=== PATIENT | female | born 1970 | race Caucasian/White ===

== ENCOUNTER 2019-10-26 01:34 | Outpatient (CLI) | payer OTHER, SELFPAY ==
[2019-10-26 18:01] LABS: SARS-CoV-2 RNA PCR Negative
== END 2019-10-26 01:35 | disposition home or self-care (01) ==
LOC: ANHCOVIDDT 01:35
PROVIDERS: PCP Physician Assistant Medical; Visit Provider Surgery Plastic and Reconstructive Surgery
DX: Z01.812 Encounter for preprocedural laboratory examination (principal); Z20.828 Contact with and (suspected) exposure to other viral communicable diseases
CPT/HCPCS: 87635; C9803; U0003

== ENCOUNTER 2019-10-26 07:46 | Outpatient (CLI) | payer OTHER, SELFPAY ==
[2019-10-26 08:57] LABS: Albumin Level 4.2 g/dL (3.5-5.1)
[2019-10-26 09:07] LABS: Prealbumin 25.1 mg/dL (17.6-36.0)
[2019-10-26 09:24] LABS: Iron 109 ug/dL (37-170)
[2019-10-31 09:28] LABS: Vitamin B1 10 nmol/L (8-30)
== END 2019-10-26 07:47 | disposition home or self-care (01) ==
PROVIDERS: PCP Physician Assistant Medical; Visit Provider Surgery Plastic and Reconstructive Surgery
DX: L57.4 Cutis laxa senilis (principal)
CPT/HCPCS: 36415; 82040; 83540; 84134; 84425

== ENCOUNTER 2019-10-29 02:42 | Day surgery (SDC) | payer OTHER, SELFPAY ==
[2019-10-14 09:49] VITALS: BMI 25.1
[2019-10-29] VITALS (17 sets, daily range): BP systolic 85–110; BP diastolic 48–74; PULSE 69–111; RESP 10–20; TEMP 36.1–37.4; O2SAT 89–100; BMI 28.0
--- NOTE | 2019-10-29 07:08 | WPDHPUPDATE1 ---
History and Physical Update Update Date/Time: 10/29/19 07:08 History and Physical has been reviewed, including an updated exam of the patient. There are NO changes in the patient's condition. Risks, benefits, and alternatives have been discussed and questions answered. Patient agrees to proceed with procedure.
[2019-10-29] MEDS: LACTATED RINGERS 1,000 ML 30 ML IV CONT ×3 (07:34→12:14)
--- NOTE | 2019-10-29 07:38 | SUR.PREOP ---
0710; DR BERNAL IN ROOM MARKING PT. RN AT BEDSIDE.
--- NOTE | 2019-10-29 07:48 | WPDANESEPPF ---
Anes - Initial Pre Proc Eval Procedure: Operation Date: 10/29/19 08:30 Proposed Procedures p Abdominoplasty, - Jose Farr MD s Abdominal Liposuction - Jose Farr MD Date/Time: 10/29/19 07:48 Surgeon: Jose Farr MD Pre Op Diagnosis: Skin Laxity Patient Data Age: 49 Gender: F Height: 5 ft 9 in Weight: 86.2 kg Last Vital Signs Temp 36.8 C 10/29/19 06:30 Pulse 69 10/29/19 06:30 Resp 16 10/29/19 06:30 BP 110/72 10/29/19 06:30 Pulse Ox 100 10/29/19 06:30 Allergies Allergy/AdvReac Type Severity Reaction Status Date / Time No Known Allergies Allergy Verified 10/29/19 06:56 Home Medications Medication Instructions Recorded Confirmed Type clonazepam 1 mg tablet 1 mg PO DAILY 09/20/19 10/29/19 History dexmethylphenidate 10 mg 10 mg PO DAILY 09/20/19 10/29/19 History capsule,extended release [id number] galcanezumab-gnlm 120 mg/mL 120 mg SUB-Q MONTHLY 09/20/19 10/14/19 History subcutaneous syringe propranolol 20 mg tablet 20 mg PO Q12H 09/20/19 10/29/19 History rizatriptan 10 mg tablet 10 mg PO PRN 09/20/19 10/29/19 History sertraline 100 mg tablet 100 mg PO DAILY 09/20/19 10/29/19 History cyclobenzaprine 10 mg PO DAILY 10/14/19 10/29/19 History docusate sodium 100 mg capsule 100 mg PO DAILY #14 cap 10/21/19 Rx ondansetron HCl 4 mg tablet 4 mg PO Q8H #28 tablet 10/21/19 Rx oxycodone-acetaminophen 5 mg-325 1 tablet PO Q6H PRN #15 tablet 10/23/19 10/23/19 Rx mg tablet Patient hx anesthesia problems: none Family hx anesthesia problems: none PMFSH Past Medical History Medical History ADHD (attention deficit hyperactivity disorder) Anxiety GERD (gastroesophageal reflux disease) History of migraine Kidney stones Surgical History Surgical History History of History of total hysterectomy Family History Family History Other Skin cancer Social History Social History Smoking status: Never smoker Second hand tobacco smoke exposure: Yes Alcohol intake: never Substance use: never Substance use type: does not use Living arrangements: with family Gender identity (if verbalized by the patient): Female Spiritual care concerns: No Anes - Eval Final PreProcedure Day of Procedure 10/29/19 07:48 Patient weight: overweight Heart: regular rate and rhythm Lungs: clear to auscultation Airway: Mallampati scale class II Neurological: alert and oriented Last oral intake: >/= 8 hours ASA classification: III Emergent: no Anesthetic plan: proceed Anesthesia type and monitoring: general ETT and standard monitoring Informed Consent: The patient's anesthetic plan and its attendant risks and benefits were discussed with the patient/family/POA. Questions were solicited and answers provided to the satisfaction of the patient/family/POA.
[2019-10-29] MEDS: SCOPOLAMINE 1.5 MG PATCH TRANSDERM (07:51)
--- NOTE | 2019-10-29 08:02 | PM.PROC ---
Procedure Note - Detailed Date of procedure: 10/29/19 Pre-op diagnosis: Skin Laxity Post-op diagnosis: same Procedure performed: Progressive tension abdominoplasty with suction lipectomy Description of procedure: She is here today for abdominoplasty. Previously and again today the risks, benefits, alternatives were discussed in extensive detail. I wanted her to be very realistic about the risks involved as well as expectations. We discussed aftercare and what to monitor for. I was very upfront about the risks of wound breakdown leading to loss of skin, open wounds, and need for additional procedures with permanent abdominal deformity. We discussed DVT/PE risks and management. Made sure answered all of her questions to her satisfaction today and consent was obtained. She was marked in the preoperative holding area with their verification. The patient was taken to the operating room placed supine on the operating table. Anesthesia was provided by anesthesiology. A perez catheter was started. She was prepped and draped in a standard sterile fashion. A surgical time-out was taken. I placed the patient in a flexed position to verify the upper and lower markings would reach. I then placed her supine. A thorough abdominal examination was completed. Stab incisions were made and used tumescent solution. Using a 4mm basket cannula and S.A.F.E. technique I completed suction lipectomy of abdomen based on preoperative markings as verified with the patient and intraoperative measurements / rolling pinch. I was very conservative in the central abdomen to protect vascularity. A 10 blade was used to make the upper incision. I continued dissection down to the level of fascia. Elevated just what was necessary for repair of the diastasis and discontinuous undermining otherwise. I then again flexed the bed to verify the upper skin flap would reach the lower markings without tension. Once verified I placed her supine once again and a 10 blade used to make the lower incision. I elevated up to level the umbilicus and left the umbilicus intact on a well-vascularized stalk. The intervening tissue was removed. A 2 mm blunt cannula and Exparel which was mixed 20 cc in 100 cc for a total volume of 120 cc I injected deep to the fascia bilaterally as well as along the incision lines. I plicated the diastasis recti using 0 PDO stratafix barbed suture. This was in 2 separate layers using 2 separate sutures as well. I repaired around the umbilicus leaving plenty of room for well-vascularized stalk of the umbilicus with 2-0 PDS. The patient was flexed and starting from superior to inferior began plication using 2-0 Vicryl to obliterate all space in a standard progressive tension fashion. At the umbilicus I marked out the location of the skin and inset this with 3-0 Monocryl and 4-0 nylon. I continued the remainder of the plication using 2-0 Vicryl until I reached my lower planned scar line. I trimmed any excess skin of the upper flap making sure this was a tension-free closure. I then approximated using a 3 point suture with 2-0 Vicryl followed by 3-0 stratafix ,running subcuticular 4-0 Monocryl, and tissue glue. Fluffs and an abdominal binder were placed. The patient was transferred to the bed in a flexed position. Awoken and taken to the PACU without difficulty. All instrument and sponge counts were correct at the end of the case. Anesthesia: GLMA Surgeon: Jose Farr MD Estimated blood loss (mL): 20 Drains: No Packing: No Pathology: none sent Complications: No immediate complications Condition: stable Disposition: PACU Findings: Suction lipectomy completed 950cc volume Abdominal tissue weight 2,465.4 grams.
[2019-10-29 08:10] LABS: Urine Cotinine NEGATIVE
--- NOTE | 2019-10-29 11:31 | SUR.OPER ---
EBL:50cc
--- NOTE | 2019-10-29 12:54 | SUR.PHASEI ---
1898 sbar faxed floor notified
--- NOTE | 2019-10-29 13:25 | PC.NURSE ---
Patient admitted to OB 2nd floor room 289. Report received from JARED Wellington. Patient oriented to room, call light within reach and all questions answered. Will continue to monitor patient.
[2019-10-29] MEDS: oxyCODONE/ACETAMINOPHEN 5-325 MG TABLET PO ×2 (15:03→20:57)
[2019-10-29] MEDS: carisoprodoL 350 MG TABLET PO ×2 (15:03→20:57)
[2019-10-29] MEDS: LACTATED RINGERS 1,000 ML 125 ML IV CONT (15:05)
[2019-10-29] MEDS: MORPHINE SULFATE 2 MG/ML INJ IV PUSH ×2 (18:48→23:57)
[2019-10-29] MEDS: PROPRANOLOL HCL 20 MG TABLET PO (23:54)
[2019-10-30] MEDS: oxyCODONE/ACETAMINOPHEN 5-325 MG TABLET PO ×3 (05:02→11:10)
[2019-10-30] MEDS: carisoprodoL 350 MG TABLET PO ×2 (05:02→11:12)
[2019-10-30 05:15] VITALS: BP 94/52; PULSE 90; RESP 16; TEMP 37.2; O2SAT 96
--- NOTE | 2019-10-30 07:48 | WPDPN ---
Progress Note: A&P Assessment and Plan (1) Skin laxity: Code(s): L57.4 - Cutis laxa senilis Status: Acute Assessment and Plan: Overall doing well after progressive tension abdominoplasty and suction lipectomy. Will plan for discharge home later when: Tolerating p.o. Ambulating Pain control I will plan to see her back next week. We discussed DVT prophylaxis and after discharge she is going to use ambulation as her DVT prophylaxis method. She understands limitations. What monitor for. She is going to call with any questions or concerns. (2) History of weight loss surgery: Code(s): Z98.84 - Bariatric surgery status Status: Acute (3) Umbilical hernia: Code(s): K42.9 - Umbilical hernia without obstruction or gangrene Status: Acute (4) Migraine headache: Code(s): G43.909 - Migraine, unspecified, not intractable, without status migrainosus Status: Acute Assessment and Plan: She is currently having a migraine. She has had similar episodes in the past. The muscle relaxer she is taking is very helpful she states. (5) History of total hysterectomy: Code(s): Z90.710 - Acquired absence of both cervix and uterus Status: Acute (6) History of : Code(s): Z98.891 - History of uterine scar from previous surgery Status: Acute Review of Systems Review of Systems: All systems reviewed & are unremarkable except as noted in HPI and below Exam Const: Other: Holding her head from the headache however otherwise doing well. Appropriately answering questions. Eyes: General: appearance normal, both eyes and all related structures Resp: Effort & Inspection: normal respiratory effort Cardio: Rate: regular rate GI: Other: Incision and abdomen are healing well. There is no signs of infection. No hematoma. No seroma. Skin: General skin exam: normal color Neuro: Cognition (Neuro): normal cognition Extrem: Other: No calf tenderness. Negative Homans. Psych: Mental Status: mental status grossly normal Objective Data Vital Signs Vital Signs: Vital Signs - 24 hr 10/29/19 11:50 10/29/19 12:05 10/29/19 12:20 Temperature 36.1 C L Pulse Rate 89 85 86 Respiratory Rate 10 L 12 12 Blood Pressure 95/72 L 90/60 L 100/70 Pulse Oximetry 100 100 100 10/29/19 12:31 08/18/20 12:45 10/29/19 13:00 Temperature Pulse Rate 83 78 76 Respiratory Rate 20 12 16 Blood Pressure 98/49 L 85/48 L 87/53 L Pulse Oximetry 94 98 97 10/29/19 13:30 10/29/19 13:45 10/29/19 14:00 Temperature 37.2 C Pulse Rate 74 80 74 Respiratory Rate 16 16 16 Blood Pressure 93/60 L 90/54 L 94/60 L Pulse Oximetry 98 98 91 10/29/19 14:30 10/29/19 15:00 10/29/19 16:06 Temperature Pulse Rate 77 75 89 Respiratory Rate 18 18 18 Blood Pressure 98/70 L 101/70 96/63 L Pulse Oximetry 89 L 95 96 10/29/19 17:25 10/29/19 20:30 10/29/19 23:50 Temperature 36.3 C L 37.1 C 37.4 C Pulse Rate 111 H 86 97 Respiratory Rate 19 16 16 Blood Pressure 90/74 L 97/64 L 87/57 L Pulse Oximetry 94 94 94 10/29/19 23:54 10/30/19 05:15 Temperature 37.2 C Pulse Rate 97 90 Respiratory Rate 16 Blood Pressure 94/52 L Pulse Oximetry 96 Intake/Output Intake/Output: Intake & Output 10/27/19 10/28/19 10/29/19 10/30/19 23:59 23:59 23:59 23:59 Intake Total 940 500 Output Total 1055 200 Balance -115 300 Meds/Results Medications: Active Medications Generic Name Dose Route Start Last Admin Trade Name Bull PRN Reason Stop Dose Admin Carisoprodol 350 mg 10/29/19 21:00 10/30/19 05:02 Soma PO 350 mg Q6H [facility] Administration Cyclobenzaprine HCl 10 mg 10/30/19 09:00 Flexeril PO DAILY [facility] Docusate Sodium 100 mg 10/29/19 21:00 10/30/19 00:05 Colace Capsule PO Not Given Q12HR [facility] Enoxaparin Sodium 40 mg 10/30/19 09:00 Lovenox SUB-Q DAILY [facility] Lactated Ringer's 1,000 mls @ 125 mls/hr 10/29/19 12
--- NOTE | 2019-10-30 07:56 | PM.DS ---
DS: Admitting Diagnosis Admitting Diagnosis Admitting Diagnosis: Skin Laxity DS: Discharge Diagnosis Discharge Diagnosis (1) Skin laxity: Code(s): L57.4 - Cutis laxa senilis Status: Acute Assessment and Plan: Doing well after progressive tension abdominoplasty and liposuction. Will plan for discharge home once feeling better today. Follow-up 1 week. Call with any questions or concerns. (2) Migraine headache: Code(s): G43.909 - Migraine, unspecified, not intractable, without status migrainosus Status: Acute Assessment and Plan: She states this is her typical migraine symptoms. She is having success with the current medication routine. She will reach out to her primary care if no improvement. (3) History of weight loss surgery: Code(s): Z98.84 - Bariatric surgery status Status: Acute (4) Umbilical hernia: Code(s): K42.9 - Umbilical hernia without obstruction or gangrene Status: Acute (5) History of : Code(s): Z98.891 - History of uterine scar from previous surgery Status: Acute (6) History of total hysterectomy: Code(s): Z90.710 - Acquired absence of both cervix and uterus Status: Acute DS: Summary Time Spent with Patient Time attestation: Total time spent providing and/or coordinating discharge services: 20 minutes with patient and her friend. Exam Const: Other: Holding her head from the headache however otherwise doing well. Appropriately answering questions. Eyes: General: appearance normal, both eyes and all related structures Resp: Effort & Inspection: normal respiratory effort Cardio: Rate: regular rate GI: Other: Incision and abdomen are healing well. There is no signs of infection. No hematoma. No seroma. Skin: General skin exam: normal color Neuro: Cognition (Neuro): normal cognition Extrem: Other: No calf tenderness. Negative Homans. Psych: Mental Status: mental status grossly normal DS: Data Data Completed and Pending Labs on day of discharge: Labs from last 24 hours 10/29/19 07:53 Cotinine Negative Discharge Plan Discharge Patient Disposition: Home, Self-Care Discharge Instructions: POST OPERATIVE DISCHARGE INSTRUCTIONS FOR Abdominoplasty / Liposuction JOSE FARR M.D. [facility] [address] [place] [address] [address] for 24 hours after anesthesia and while you are taking pain medication. Take all prescribed medication as directed Diet as tolerated. No lifting or activity that raises blood pressure for 48 hours. Regular walking / ambulation. No showering until directed to. Once you shower do not take pain medication before showering as the combination of medication and heat may cause you to feel dizzy or pass out. No pools or tubs for 2 weeks. Call with any questions or concerns. Slowly stand up straight as tolerated over the week. No straining or lifting more than 20 pounds. Dressing Care: May remove all dressings and shower. Replace abdominal binder. Wear binder 23 hours per day. If you have any questions or concerns, please call the office . If it is after hours you will be directed to the cooperative extension agent exchange. Shortness of breath, chest pain, or other medical emergency dial 911 / proceed to the Emergency Room. Stand Alone Forms: General Discharge Instructions Follow-up/Referrals: Jose Farr MD [Physician] - 1 Week Discharge Medications: Continued clonazepam [Klonopin] 1 mg tablet 1 mg PO DAILY RF: 0 sertraline [Zoloft] 100 mg tablet 100 mg PO DAILY RF: 0 rizatriptan [Maxalt] 10 mg tablet 10 mg PO PRN RF: 0 Emgality Syringe 120 mg/mL syringe 120 mg SUB-Q MONTHLY RF: 0 propranolol 20 mg tablet 20 mg PO Q12H RF: 0 dexmethylphenidate [Focalin XR] 10 mg capsule,ER biphasic 50-50 10 mg PO DAILY RF: 0 ondans
--- NOTE | 2019-10-30 08:00 | PC.NURSE ---
PT introductions made and plan of care discussed per post op finished cigar maker surgery, pain management, daily care activities and pending discharge to home. PT verbalized understanding of such care.
[2019-10-30 08:24] VITALS: PULSE 88
[2019-10-30] MEDS: DOCUSATE SODIUM 100 MG CAPSULE PO (08:24)
[2019-10-30] MEDS: PROPRANOLOL HCL 20 MG TABLET PO (08:24)
[2019-10-30] MEDS: SERTRALINE HCL 50 MG TABLET 100 MG PO (08:25)
[2019-10-30] MEDS: ENOXAPARIN 40 MG/0.4 ML SYRINGE SUB-Q (08:37)
[2019-10-30 08:45] VITALS: BP 89/59; PULSE 90; RESP 16; TEMP 37.3; O2SAT 95
--- NOTE | 2019-10-30 08:53 | WPDANESPN ---
Anes - Prog Note Post-Op Date/Time: 10/30/19 08:53 Cardiovascular status: normal Respiratory status: normal Airway patency: baseline Mental status: baseline Post-Op hydration status: normal Vital Signs: Last Vital Signs Temp 37.3 C 10/30/19 08:45 Pulse 90 10/30/19 08:45 Resp 16 10/30/19 08:45 BP 89/59 L 10/30/19 08:45 Pulse Ox 95 10/30/19 08:45 I/O: Intake & Output 10/29/19 10/30/19 10/30/19 23:59 07:59 15:59 Intake Total 240 500 Output Total 850 200 Balance -610 300 Post-procedural complaints: other (headache) Patient Feedback: Patient satisfied with anesthetic care.
[2019-10-30] MEDS: clonazePAM 0.5 MG TABLET 1 MG PO (10:16)
[2019-10-30] MEDS: RIZATRIPTAN BENZOATE 10 MG TABLET PO (10:17)
[2019-10-30] MEDS: SERTRALINE HCL 50 MG TABLET (10:24)
--- NOTE | 2019-10-30 12:30 | PC.NURSE ---
PT received discharge instructions per protocol and verbalized understanding of such care
--- NOTE | 2019-10-30 12:49 | PC.NURSE ---
PT discharged to home via wheelchair accompanied by friend. Follow up appts confirmed
== END 2019-10-30 12:49 | disposition home or self-care (01) ==
LOC: ANHSURGERY 06:14 → ANHOB2 14:04
PROVIDERS: PCP Physician Assistant Medical; Visit Provider Surgery Plastic and Reconstructive Surgery
PROC: (CPT 15830; principal; 2019-10-29 08:30)
PROC: (CPT 15877; 2019-10-29 08:30)
DX: Z41.1 Encounter for cosmetic surgery (principal); L57.4 Cutis laxa senilis; F90.9 Attention-deficit hyperactivity disorder, unspecified type; F41.9 Anxiety disorder, unspecified; K21.9 Gastro-esophageal reflux disease without esophagitis; Z79.899 Other long term (current) drug therapy; Z98.84 Bariatric surgery status; K42.9 Umbilical hernia without obstruction or gangrene
CPT/HCPCS: 15830; 15847; 15877; 36415; 80307; 99199; A9270; C9290; J0171; J1100; J1170; J1650; J2250; J2270; J2370; J2405; J2704; J2710; J3010; J7120

== ENCOUNTER 2019-11-25 16:42 | Outpatient (CLI) | payer OTHER, SELFPAY ==
[2019-11-25 16:59] LABS: Basophils Absolute Auto 0.1 K/mm3 (0.0-0.1); Basophils Percent Auto 0.8 % (0.2-1.2); Eosinophils Absolute Auto 0.7 K/mm3 (0-0.3); Eosinophils Percent Auto 7.8 % (0-4.4); Hematocrit 38.6 % (37.0-47.0); Hemoglobin 12.5 g/dL (12.0-15.0); Immature Granulocyte Absolute 0.02 K/mm3 (0.00-0.031); Immature Granulocyte Percent A 0.2 % (0-0.5); Lymphocytes Absolute Auto 1.99 K/mm3 (0.9-3.2); Lymphocytes Percent Auto 21.9 % (18.3-44.2); Mean Corpuscular HGB Conc 32.4 g/dl (32-36); Mean Corpuscular Hemoglobin 31.4 pg (26-34); Mean Platelet Volume 9.9 fl (7.4-10.4); Monocytes Absolute Auto 0.7 K/mm3 (0.1-0.6); Monocytes Percent Auto 7.9 % (2.6-8.5); Neutrophils Absolute Auto 5.6 K/mm3 (1.3-6.7); Neutrophils Percent Auto 61.4 % (45.5-73.1); Platelet Count Result 379 k/mm3 (150-375); Red Blood Count 3.98 M/mm3 (4.2-5.4); Red Cell Distribution Width 13.4 % (11.5-14.5); White Blood Count 9.1 K/mm3 (4.5-10.0)
[2019-11-25 17:14] LABS: Alanine Aminotransferase 22 U/L (4-35); Albumin Level 4.4 g/dL (3.5-5.1); Alkaline Phosphatase 59 U/L (38-126); Amylase 71 U/L (30-110); Anion Gap 6 mmol/L (8-16); Aspartate Amino Transferase 29 U/L (14-36); Bilirubin,Total < 0.1 mg/dL (0.2-1.3); Blood Urea Nitrogen 24 mg/dL (7-17); Calcium 9.4 mg/dL (8.4-10.2); Carbon Dioxide 28 mmol/L (22-30); Chloride 103 mmol/L (98-107); Estimated Glomerular Filt Rate 48; Glucose 104 mg/dL (65-105); Lipase 144 U/L (23-300); Potassium 4.3 mmol/L (3.4-5.0); Sodium 137 mmol/L (137-145)
== END 2019-11-25 16:43 | disposition home or self-care (01) ==
PROVIDERS: PCP Physician Assistant Medical; Visit Provider Surgery Plastic and Reconstructive Surgery
DX: R10.9 Unspecified abdominal pain (principal)
CPT/HCPCS: 36415; 80053; 82150; 83690; 85025

== ENCOUNTER → 2020-01-02 15:18 | Outpatient (CLI) | payer OTHER, SELFPAY ==
--- NOTE | ~2020-01-02 | MR_ITS ---
EXAMINATION: MR brain/brain stem wo/w con DATE: 01/02/2020 16:33 INDICATION: Migraine headache. TECHNIQUE: Magnetic resonance imaging (MRI) of the brain and brainstem was performed without and with 15 mL MultiHance intravenous contrast. Sequences included sagittal and axial T1-weighted FSE, axial diffusion-weighted FS EPI, axial T2*-weighted GRE, axial T2-weighted FLAIR Propeller, and axial T2-we ighted Propeller. Postcontrast sequences included axial, sagittal, and coronal T1-weighted FSE. Appar ent diffusion coefficient (ADC) maps were created. COMPARISON: None. FINDINGS: There is no intracranial hemorrhage, acute infarction, or abnormal intracranial mass lesion . The ventricles are normal in size. There is mild mucosal thickening in left maxillary sinus. The ma stoid air cells are normal. The orbits are normal. IMPRESSION: 1. Normal brain. Reviewed, dictated and finalized at location A. IMPRESSION: 1. Normal brain.
[2020-01-02 15:53] LABS: Estimated Glomerular Filt Rate > 60
== END ==
PROVIDERS: PCP Physician Assistant Medical; Visit Provider Physician Assistant Medical
DX: G43.909 Migraine, unspecified, not intractable, without status migrainosus (principal)
CPT/HCPCS: 70553; A9577

== ENCOUNTER 2021-12-13 11:07 | Emergency (ER) | payer OTHER, SELFPAY ==
[2021-12-13 11:17] VITALS: BP 104/63; PULSE 83; RESP 18; TEMP 36.4; O2SAT 99
--- NOTE | 2021-12-13 11:28 | ED.URI ---
HPI - URI/Sore Throat General Chief Complaint: Upper Respiratory Infection Stated Complaint: cough,bilateral ear pain,congestion Time Seen by Provider: 12/13/21 11:20 Source: patient Mode of arrival: ambulatory Limitations: no limitations History of Present Illness HPI Narrative: Mrs. Garcai is a 51 year old female patient presenting to the clinic today with c/o cough, nasal congestion,and bilateral ear discomfort since Monday. Reports low grade fever of 100.7F- states she has taken covid test every day since she has been sick and it has been negative. She has no known exposure to anyone with covid, flu, or strep MD elicited complaint: sore throat and nasal congestion Related Data Home Medications Medication Instructions Recorded Confirmed clonazepam 1 mg tablet (Klonopin) 1 mg PO DAILY 09/20/19 12/13/21 galcanezumab-gnlm 120 mg/mL 120 mg subcut MONTHLY 09/20/19 12/13/21 subcutaneous syringe (Emgality) propranolol 20 mg tablet 20 mg PO Q12H 09/20/19 12/13/21 sertraline 100 mg tablet (Zoloft) 100 mg PO DAILY 09/20/19 12/13/21 dexmethylphenidate 20 mg 20 mg PO QAM 06/15/20 12/13/21 capsule,extended release -85 alprazolam 0.5 mg tablet 0.5 mg PO HS 12/13/21 12/13/21 cyclobenzaprine 10 mg tablet 10 mg PO HS 12/13/21 12/13/21 rizatriptan 10 mg tablet (Maxalt) 10 mg PO PRN PRN Migraine Headache 12/13/21 12/13/21 Allergies Allergy/AdvReac Type Severity Reaction Status Date / Time No Known Allergies Allergy Verified 12/13/21 11:14 Review of Systems Review of Systems: Pertinent positives per HPI. Patient denies any rash, headache, visual changes, dizziness, shortness of breath, chest pain, palpitations, nausea, vomiting, diarrhea, constipation, abdominal pain, or any urinary issues. [facility] Past Medical History Medical History (Updated 12/13/21 @ 11:46 by Harry Pro, TECHNOLOGY COACH) ADHD (attention deficit hyperactivity disorder) Anxiety GERD (gastroesophageal reflux disease) History of migraine Kidney stones Surgical History Surgical History History of History of total hysterectomy Family History Family History Other Skin cancer Social History Social History Smoking status: Never smoker Second hand tobacco smoke exposure: Yes Alcohol intake: never Substance use: never Substance use type: does not use Gender identity (if verbalized by the patient): Female Spiritual care concerns: No Comments At the time of my signature, I reviewed and agree with the nursing past medical, surgical, social, and family history. There is no relevant family history pertinent to the patient complaint. Exam Narrative: General: Well-developed, well nourished, in no apparent distress Head: Normocephalic, atraumatic Eyes: Pupils equally round and reactive to light bilaterally, EOM intact, sclera and conjunctive clear, no discharge, lids normal Ears: TMs intact and clear, ear canals clear, no drainage, grossly hearing normal. Nose: Nares patent, clear nasal discharge, mild inflammation, no sinus tenderness. Mouth: Oral pharynx without lesions or masses, good dentition, MMM. PND Neck: Supple, trachea midline, no enlargement of anterior or posterior cervical nodes, no thyroid masses or goiter palpable. Cardio: Regular rate and rhythm, s1 and s2 normal, no murmur appreciated. Resp: Clear to auscultation bilaterally, no rhonchi, rales, wheezing or rubs Course Course Emergency Course: Portions of this record may have been created with voice recognition software. Level of Care: Express Care Visit Vital Signs Vital signs: Vital Signs Temperature 36.4 C L 12/13/21 11:17 Pulse Rate 83 12/13/21 11:17 Respiratory Rate 18 12/13/21 11:17 Blood Pressure 104/63 12/13/21 11:17 Pulse Oximetry 99
== END 2021-12-13 11:49 | disposition home or self-care (01) ==
PROVIDERS: Emergency Provider Nurse Practitioner Family; PCP Physician Assistant Medical
DX: B34.9 Viral infection, unspecified (principal); J06.9 Acute upper respiratory infection, unspecified; K21.9 Gastro-esophageal reflux disease without esophagitis; F41.9 Anxiety disorder, unspecified
CPT/HCPCS: 87081; 87804; 87880; 99213; G0463

== ENCOUNTER 2021-12-30 11:38 | Emergency (ER) | payer OTHER, SELFPAY ==
--- NOTE | 2021-12-30 11:40 | ED.URI ---
HPI - URI/Sore Throat General Chief Complaint: Upper Respiratory Infection Stated Complaint: Headache,Cough,Congestion Time Seen by Provider: 12/30/21 12:24 Source: patient and RN notes reviewed Mode of arrival: ambulatory Limitations: no limitations History of Present Illness HPI Narrative: 51-year-old female presents with concerns sinus pressure, pain, drainage, cough, headache. She reports she was seen here the beginning of December and was diagnosed upper respiratory infection. She reports her symptoms have been intermittent since that time, have resolved. She reports worsened over the last 2-3 days. She has been taking many [id number] medications without relief. She reports exposure to RSV, strep and COVID. MD elicited complaint: cough and nasal congestion Related Data Home Medications Medication Instructions Recorded Confirmed clonazepam 1 mg tablet (Klonopin) 1 mg PO DAILY 09/20/19 12/13/21 galcanezumab-gnlm 120 mg/mL 120 mg subcut MONTHLY 09/20/19 12/13/21 subcutaneous syringe (Emgality) propranolol 20 mg tablet 20 mg PO Q12H 09/20/19 12/13/21 sertraline 100 mg tablet (Zoloft) 100 mg PO DAILY 09/20/19 12/13/21 dexmethylphenidate 20 mg 20 mg PO QAM 06/15/20 12/13/21 capsule,extended release [id number] alprazolam 0.5 mg tablet 0.5 mg PO HS 12/13/21 12/13/21 rizatriptan 10 mg tablet (Maxalt) 10 mg PO PRN PRN Migraine Headache 12/13/21 12/13/21 Allergies Allergy/AdvReac Type Severity Reaction Status Date / Time No Known Allergies Allergy Verified 12/30/21 12:01 Review of Systems Review of Systems: CONSTITUTIONAL: reports malaise EYES: Denies visual changes, redness, or discharge. ENT: Reports rhinorrhea, congestion, sinus pain, otalgia and sore throat. CARDIOVASCULAR: Denies chest pain, palpitations, or edema. RESPIRATORY: Reports cough. Denies dyspnea. GASTROINTESTINAL: Denies abdominal pain, nausea, vomiting, diarrhea SKIN: Denies rash or itching. MUSCULOSKELETAL: reports myalgia. NEUROLOGIC: reports headache. All systems reviewed & are unremarkable except as noted in HPI and below PMFSH Past Medical History Medical History (Updated 12/30/21 @ 12:33 by Margoth Cruz NP) ADHD (attention deficit hyperactivity disorder) Anxiety GERD (gastroesophageal reflux disease) History of migraine Kidney stones Surgical History Surgical History History of History of total hysterectomy Family History Family History Other Skin cancer Social History Social History Smoking status: Never smoker Second hand tobacco smoke exposure: Yes Alcohol intake: never Substance use: never Substance use type: does not use Gender identity (if verbalized by the patient): Female Spiritual care concerns: No Comments At time of signature, agree with nursing past medical, surgical, social and family history. There is no relevant family history pertinent to the presenting complaint Exam Narrative: GENERAL: nontoxic appearing and in no acute distress. HEAD: Normocephalic EYES: PERRLA, conjunctivae clear ENT: Nares clear, turbinates edematous and erythematous, sinus tenderness. Mucous membranes moist. TM pearly nelson with dull light reflex bilaterally; no tragal tenderness. Oropharynx not erythematous without lesions. Tonsils not enlarged and without exudate, no drooling, no hoarseness, no trismus, uvula midline. NECK: Supple. No lymphadenopathy CHEST: Clear to auscultation, breath sounds equal. No wheezing, rhonchi, rales, or stridor. No respiratory distress, speaks in full sentences. HEART: Regular rate and rhythm. No murmur heard. SKIN: Warm, dry, no rash. NEURO: Alert and oriented x3. PSYCH: Normal mood and affect Course Course Emergency Course: Patient is aware of diagnosis, understands and
[2021-12-30 11:49] VITALS: BP 125/76; PULSE 87; RESP 18; TEMP 36.3; O2SAT 99
== END 2021-12-30 12:40 | disposition home or self-care (01) ==
PROVIDERS: Emergency Provider Nurse Practitioner; PCP Physician Assistant Medical
DX: J32.9 Chronic sinusitis, unspecified (principal); J40 Bronchitis, not specified as acute or chronic; Z20.822 Contact with and (suspected) exposure to COVID-19; K21.9 Gastro-esophageal reflux disease without esophagitis; F41.9 Anxiety disorder, unspecified; F90.9 Attention-deficit hyperactivity disorder, unspecified type
CPT/HCPCS: 87081; 87426; 87804; 87880; 99213; C9803; G0463

== ENCOUNTER 2022-01-06 10:14 | Emergency (ER) | payer OTHER, SELFPAY ==
[2022-01-06 10:22] VITALS: BP 106/70; PULSE 74; RESP 18; TEMP 36.8; O2SAT 97
--- NOTE | 2022-01-06 10:39 | ED.FEMALEGU ---
HPI - Female Genitourinary General Chief complaint: Urogenital-Female Stated complaint: Possible UTI Time Seen by Provider: 01/06/22 10:40 Source: patient and RN notes reviewed Mode of arrival: ambulatory Limitations: no limitations History of Present Illness HPI Narrative: 52 y/o female presented for c/o urinary urgency, frequency, and blood in urine since yesterday. Endorses dysuria, denies pain. States vaginal pain is horrible, rates 11/20, she has been crying. Last UTI Easter 2021. Hx renal stones while on topamax. She has recently restarted taking this medication. Denies hematuria, nausea, vomiting, abdominal pain, flank pain, constipation, diarrhea, fevers or chills. She denies any concern for std, vaginal itching, discharge, or lesions. Taking azo and cranberry juice, and increased water. Hx total hysterectomy. Related Data Home Medications Medication Instructions Recorded Confirmed galcanezumab-gnlm 120 mg/mL 120 mg subcut MONTHLY 09/20/19 01/06/22 subcutaneous syringe (Emgality) propranolol 20 mg tablet 20 mg PO Q12H 09/20/19 01/06/22 sertraline 100 mg tablet (Zoloft) 100 mg PO DAILY 09/20/19 01/06/22 dexmethylphenidate 20 mg 20 mg PO QAM 06/15/20 01/06/22 capsule,extended release [id number] alprazolam 0.5 mg tablet 0.5 mg PO HS 12/13/21 01/06/22 rizatriptan 10 mg tablet (Maxalt) 10 mg PO PRN PRN Migraine Headache 12/13/21 01/06/22 Allergies Allergy/AdvReac Type Severity Reaction Status Date / Time No Known Allergies Allergy Verified 01/06/22 10:28 Review of Systems Review of Systems: CONSTITUTIONAL: Denies body aches, fever, chills, or sweats. CARDIOVASCULAR: Denies chest pain, palpitations, or edema. RESPIRATORY: Denies cough or dyspnea. GASTROINTESTINAL: Denies abdominal pain, nausea, vomiting, or diarrhea. GENITOURINARY: per hpi SKIN: Denies rash, itching, or wounds. MUSCULOSKELETAL: Denies back pain or myalgia. [facility] Past Medical History Medical History ADHD (attention deficit hyperactivity disorder) Anxiety GERD (gastroesophageal reflux disease) History of migraine Kidney stones Surgical History Surgical History History of History of total hysterectomy Family History Family History Other Skin cancer Social History Social History Smoking status: Never smoker Second hand tobacco smoke exposure: Yes Alcohol intake: never Substance use: never Substance use type: does not use Gender identity (if verbalized by the patient): Female Spiritual care concerns: No Comments At time of signature, I have reviewed and agree with nursing past medical, surgical, social and family history unless otherwise noted. Please see nursing chart for further information. There is no relevant family history pertinent to the presenting complaint Exam Narrative: GENERAL: ill-appearing, nontoxic ENT: Mucous membranes pink and moist. CHEST: Clear to auscultation. HEART: Regular rate and rhythm. ABDOMEN: Soft, nontender, nondistended, normal active bowel sounds. No CVA tenderness SKIN: Warm, dry, no rash. NEURO: No focal deficits. Alert and oriented x3. PSYCH: Normal affect. Course Course Emergency Course: Patient is aware of diagnosis, understands and agrees to treatment plan. Anticipatory guidance given. Patient agrees to follow-up as directed and is aware of reasons to seek care at the emergency department. Portions of this record may have been created with voice recognition software Level of Care: Express Care Visit Vital Signs Vital signs: Vital Signs Temperature 98.2 F 01/06/22 10:22 Pulse Rate 74 01/06/22 10:22 Respiratory Rate 18 01/06/22 10:22 Blood Pressure 106/70 01/06/22 10:22 Pulse Oximetry 97 01/06/22 10
== END 2022-01-06 11:00 | disposition home or self-care (01) ==
PROVIDERS: Emergency Provider Nurse Practitioner Family; PCP Physician Assistant Medical
DX: N39.0 Urinary tract infection, site not specified (principal); K21.9 Gastro-esophageal reflux disease without esophagitis; F90.9 Attention-deficit hyperactivity disorder, unspecified type
CPT/HCPCS: 81003; 87086; 99213; G0463

== ENCOUNTER 2025-01-07 10:05 | Outpatient (CLI) | payer OTHER, SELFPAY ==
--- NOTE | ~2025-01-07 | MM_ITS ---
EXAMINATION: MM screening juhi BI w tevin HISTORY: Screening TECHNIQUE: Craniocaudal and mediolateral oblique 3-D tomosynthesis images were obtained and synthetic 2-D images were generated. CAD analysis was submitted and interpreted. COMPARISON: No prior mammogram is available for comparison at this institution. BREAST PARENCHYMAL COMPOSITION: Dense: The breasts are heterogeneously dense, which may obscure small masses FINDINGS: There is no evidence of suspicious mass, calcification, or architectural distortion to suggest malignancy in either breast. There has been no suspicious interval change. IMPRESSION: 1. No mammographic evidence of malignancy. 2. Recommend routine screening mammography in one year. BI-RADS Category 1: Negative Reviewed, dictated and finalized at location B.
== END 2025-01-07 10:06 | disposition home or self-care (01) ==
PROVIDERS: PCP Physician Assistant Medical; Visit Provider Physician Assistant Medical
DX: Z12.31 Encounter for screening mammogram for malignant neoplasm of breast (principal)
CPT/HCPCS: 77063; 77067